=== PATIENT | female | born 1995 | race American Indian/Alaskan Native ===

== ENCOUNTER 2021-05-13 20:25 | Emergency (ER) | payer OTHER ==
[2021-05-13 21:14] VITALS: BP 120/71
--- NOTE | 2021-05-13 23:51 | Emergency Department Report ---
ED General Adult HPI - General Chief complaint: Laceration/Recheck/Suture Stated complaint: VAGINAL SUTURE CHECK Source: patient Mode of arrival: Ambulatory Limitations: No Limitations - History of Present Illness Initial comments: Patient is a A0 25-year-old -[place] female with no past medical history and who is 5 days with episiotomy presents to the ED with complaint of persistent painful episiotomy wound stating that she suspects that the wound may have dehisced following the sutures that were placed 5 days ago. Patient states that she does not perform any physical or strenuous activities but that the pain is worsening with any movement. Patient states that she is currently taking ibuprofen that was prescribed by her UPHOLSTERY TECHNICIAN physician for pain. Patient denies fever, chills, nausea and vomiting, dizziness, syncope, chest pain, shortness of breath, cough, dysuria, urinary frequency and urgency, sore throat, or change in vision. MD Complaint: wound recheck, s/p episiotomy procedure -: Sudden, days(s) (5) Location: genitals Radiation: non-radiation Severity scale (0 -10): 5 Quality: aching, sharp Consistency: intermittent Improves with: none Worsens with: movement Associated Symptoms: denies other symptoms, other (Wound recheck of episiotomy). denies: confusion, chest pain, cough, diaphoresis, fever/chills, headaches, loss of appetite, malaise, nausea/vomiting, rash, seizure, shortness of breath, syncope, weakness Treatments Prior to Arrival: none - Related Data Previous Rx's Medication Instructions Recorded Last Taken Type Ibuprofen [Motrin 600 MG tab] 800 mg PO Q8H #30 tablet 05/09/21 Unknown Rx cephALEXin [Keflex] 500 mg PO Q6HR #40 capsule 05/13/21 Unknown Rx Allergies Allergy/AdvReac Type Severity Reaction Status Date / Time No Known Allergies Allergy Verified 05/07/21 12:05 ED Review of Systems ROS: Stated complaint: VAGINAL SUTURE CHECK Other details as noted in HPI Constitutional: denies: chills, fever Eyes: denies: eye pain, eye discharge, vision change ENT: denies: ear pain, throat pain Respiratory: denies: cough, shortness of breath, wheezing Cardiovascular: denies: chest pain, palpitations Endocrine: no symptoms reported Gastrointestinal: denies: abdominal pain, nausea, diarrhea Genitourinary: other (Episiotomy wound dehiscence with pain). denies: urgency, dysuria, discharge Musculoskeletal: denies: back pain, joint swelling, arthralgia Skin: other (Episiotomy wound dehiscence with pain). denies: rash, lesions Neurological: denies: headache, weakness, paresthesias Psychiatric: denies: anxiety, depression Hematological/Lymphatic: denies: easy bleeding, easy bruising ED Past Medical Hx - Past Medical History Hx Hypertension: No Hx Congestive Heart Failure: No Hx Diabetes: No Hx Deep Vein Thrombosis: No Hx Renal Disease: No Hx Sickle Cell Disease: No Hx Seizures: No Hx Asthma: No Hx COPD: No Hx HIV: No - Social History Smoking Status: Never Smoker - Medications Home Medications: Home Medications Medication Instructions Recorded Confirmed Last Taken Type Ibuprofen [Motrin 600 MG tab] 800 mg PO Q8H #30 tablet 05/09/21 Unknown Rx cephALEXin [Keflex] 500 mg PO Q6HR #40 capsule 05/13/21 Unknown Rx ED Physical Exam - General Limitations: No Limitations General appearance: alert, in no apparent distress - Head Head exam: Present: atraumatic, normocephalic, normal inspection - Eye Eye exam: Present: normal appearance, PERRL, EOMI Pupils: Present: normal accommodation - ENT ENT exam: Present: normal exam, normal orophraynx, mucous membranes moist, TM's normal bilaterally, normal external ear exam - Neck Neck exam: Present: normal inspection, full ROM. Absent: lymphadenopathy, thyromegaly - Respiratory Respiratory exam: Present: normal lung sounds bilaterally. Absent: respiratory distress, wheezes, rales, stridor, chest wall tenderness, accessory muscle use, decreased breath sounds - Cardiovascular Cardiovascular Exam: Present: regular rate, normal rhythm, normal heart sounds. Absent: systolic murmur, diastolic murmur, rubs, gallop - GI/Abdominal GI/Abdominal exam: Present: soft, normal bowel sounds. Absent: tenderness, guarding, rebound, hyperactive bowel sounds, hypoactive bowel sounds - External exam: Present: other (Mildly swollen episode to me wound, intact sutures with purulent discharge) Bi-manual exam: Present: other (Female RN detective private eye present) - Extremities Exam Extremities exam: Present: normal inspection, full ROM, normal capillary refill. Absent: tenderness, pedal edema, joint swelling - Back Exam Back exam: Present: normal inspection, full ROM. Absent: tenderness, CVA tenderness (R), CVA tenderness (L), muscle spasm, paraspinal tenderness, vertebral tenderness - Neurological Exam Neurological exam: Present: alert, oriented X3, CN II-XII intact, normal gait, reflexes normal - Psychiatric Psychiatric exam: Present: normal affect, normal mood - Skin Skin exam: Present: warm, dry, intact, normal color, other (Episiotomy wound fully closed with sutures in place, no sign of tear or dehiscence; mild swelling and purulent discharge). Absent: rash ED Course Vital Signs 05/13/21 21:13 Temperature 98.9 F Pulse Rate 83 Respiratory 18 Rate Blood Pressure 120/71 [Right] O2 Sat by Pulse 100 Oximetry ED Medical Decision Making - Medical Decision Making This is a A0 25-year-old -[place] female with no past medical history and who is 5 days with episiotomy presents to the ED with complaint of persistent painful episiotomy wound stating that she suspects that the wound may have dehisced following the sutures that were placed 5 days ago. Patient states that she does not perform any physical or strenuous activities b ut that the pain is worsening with any movement. Patient states that she is currently taking ibuprofen that was prescribed by her UPHOLSTERY TECHNICIAN physician for pain. In the ED, patient is alert and oriented x3 and is not in any distress. Physical exam is unremarkable except for mildly swollen episiotomy wound with sutures in place and with mildly purulent discharge. Patient was discharged home on oral antibiotics Keflex 500 mg every 6 hours for 10 days. Patient was advised to continue taking the previously prescribed pain medication as needed and to follow-up with her UPHOLSTERY TECHNICIAN physician in 7 to 10 days for reevaluation. Patient was advised return to the ED immediately if symptoms get worse. - Differential Diagnosis Surgical wound dehiscence; episiotomy infection; cellulitis; Critical care attestation.: If time is entered above; I have spent that time in minutes in the direct care of this critically ill patient, excluding procedure time. ED Disposition Clinical Impression: episiotomy dehiscence, Wound dehiscence in puerperium, perineal Disposition: 01 HOME / SELF CARE / HOMELESS Is pt being admited?: No Does the pt Need Aspirin: No Condition: Stable Instructions: Wound Dehiscence, [id number], Episiotomy, Care After Additional Instructions: Take medication as needed for pain, take the antibiotic as advised. Follow-up with your primary care physician or UPHOLSTERY TECHNICIAN physician in 7 to 10 days for reevaluation. Return to the ED immediately if symptoms get worse. Prescriptions: cephALEXin [Keflex] 500 mg PO Q6HR #40 capsule Referrals: PERLITA HARVEY MD [Staff Physician] - 7-10 days Time of Disposition: 23:48 Print Language: CANADIAN
== END 2021-05-14 | disposition home or self-care (01) ==
LOC: ED 20:25
DX: O90.1 Disruption of perineal obstetric wound (principal); O90.0 Disruption of cesarean delivery wound
CPT/HCPCS: 99282; 99283